=== PATIENT | female | born 1995 | race Caucasian/White ===

== ENCOUNTER 2019-05-08 08:10 | Inpatient (IN) | payer MEDICAID, BC, OTHER ==
[2019-05-08] MEDS: SOD CHLORIDE 0.9% 500 ML IV ×2 (08:59→14:19)
[2019-05-08] MEDS: LIDOCAINE/MYLANTA 40 ML BTL PO (08:59)
[2019-05-08] MEDS: ONDANSETRON 4 MG INJ IV ×2 (08:59→18:31)
[2019-05-08 09:05] LABS: ADD MAN DIFF? NO
[2019-05-08 09:07] LABS: BASOPHILS % 0.2 % (0.0-2.0); HEMATOCRIT 40.1 % (37.0-47.0); HEMOGLOBIN 13.8 g/dl (12.0-16.0); LYMPHOCYTES # 1.1 10^3/ul (0.8-2.9); LYMPHOCYTES % 8.6 % (15.0-51.0); MEAN CORPUSCULAR HEMOGLOBIN 30.3 pg (29.0-33.0); MEAN CORPUSCULAR HGB CONC 34.4 g/dl (32.0-37.0); MEAN CORPUSCULAR VOLUME 87.9 fl (82.0-101.0); MEAN PLATELET VOLUME 9.6 fl (7.4-10.4); MONOCYTE # 0.3 10^3/ul (0.3-0.9); MONOCYTES % 2.5 % (0.0-11.0); NEUTROPHILS % 88.4 % (39.0-77.0); PLATELET COUNT 386 10^3/UL (140-415); RED BLOOD COUNT 4.56 10^6/ul (4.20-5.40); RED CELL DISTRIBUTION WIDTH 12.7 % (11.5-14.5)
[2019-05-08 09:07] LABS: WHITE BLOOD COUNT 12.5 10^3/ul (4.8-10.8)
[2019-05-08 09:15] LABS: ADD UMIC YES; UR ASCORBIC ACID 20 mg/dL (NEGATIVE); UR BILIRUBIN (Dip) NEGATIVE (NEGATIVE); UR BLOOD (Dip) NEGATIVE (NEGATIVE); UR CLARITY CLOUDY (CLEAR); UR COLOR YELLOW (YELLOW); UR GLUCOSE (Dip) NEGATIVE (NEGATIVE); UR KETONES (Dip) 2+ mg/dL (NEGATIVE); UR LEUKOCYTE ESTERASE (Dip) NEGATIVE Leu/ul (NEGATIVE); UR MUCUS FEW /HPF (NONE SEEN); UR NITRITE (Dip) NEGATIVE (NEGATIVE); UR RBC 34 /HPF (0-5); UR SPECIFIC GRAVITY (Dip) 1.023 (1.003-1.030); UR SQUAMOUS EPITHELIAL CELL FEW /HPF (FEW); UR TOTAL PROTEIN (Dip) 1+ mg/dl (NEGATIVE); UR UROBILINOGEN (Dip) NEGATIVE (NEGATIVE); UR WBC 5 /HPF (0-5)
[2019-05-08 09:23] LABS: ANION GAP 11 (5-13); BLOOD UREA NITROGEN 6 mg/dl (7-20); CALCIUM 9.5 mg/dl (8.4-10.2); CARBON DIOXIDE 27 mmol/L (21-31); CHLORIDE 103 mmol/L (97-110); Estimated GFR > 60 mL/min (>60); GLUCOSE 125 mg/dl (70-220); POTASSIUM 3.8 mmol/L (3.5-5.1); SODIUM 141 mmol/L (135-144)
[2019-05-08] MEDS: morphine 4 MG/ML VIAL IV ×2 (11:10→18:32)
[2019-05-08] MEDS: SOD CHLORIDE 0.9% 100 ML (11:26)
[2019-05-08] MEDS: IOHEXOL 300MG/ML 150 ML BTL (11:26)
[2019-05-08] MEDS: morphine 2 MG INJ IV (12:44)
[2019-05-08] MEDS: LORAZEPAM 2 MG INJ IV (14:18)
[2019-05-08] MEDS: LACTATED RINGER'S 1,000 ML IV (18:32)
[2019-05-08] MEDS ORDERED: DESFLURANE 15 MIN (20:00)
[2019-05-08] MEDS: CEFAZOLIN 2 GM/50 ML (PMX) 50 ML IVPB (20:00)
[2019-05-08] MEDS ORDERED: MIDAZOLAM 1 MG/ML 2 ML INJ (20:09)
[2019-05-08] MEDS ORDERED: morphine SULFATE/PF (10 MG/10 ML) INJ (20:14)
[2019-05-08] MEDS ORDERED: METOCLOPRAMIDE 10 MG INJ (20:24)
[2019-05-08] MEDS ORDERED: ROPIVACAINE 0.5 % 30 ML VIAL (20:29)
[2019-05-08] MEDS ORDERED: DIPHENHYDRAMINE 50 MG INJ IV (20:30)
[2019-05-08] MEDS ORDERED: FENTAnyl 50 MCG/ML VIAL IV ×3 (20:30)
[2019-05-08] MEDS ORDERED: HYDROmorphONE 1 MG/5 ML IV SYRINGE IV ×3 (20:30)
[2019-05-08] MEDS ORDERED: KETOROLAC 30 MG INJ IV (20:30)
[2019-05-08] MEDS ORDERED: MEPERIDINE 25 MG INJ IV (20:30)
[2019-05-08] MEDS ORDERED: ONDANSETRON 4 MG INJ IV (20:30)
[2019-05-08] MEDS ORDERED: PROPOFOL 20 ML (20:44)
[2019-05-08] MEDS ORDERED: ROCURONIUM 50 MG INJ ×2 (20:44→23:44)
[2019-05-08] MEDS ORDERED: CEFAZOLIN 1 GM INJ (20:44)
[2019-05-08] MEDS ORDERED: ONDANSETRON 4 MG INJ (20:45)
[2019-05-08] MEDS ORDERED: PHENYLephrine (100 MCG/ML) 10ML SYG (21:04)
[2019-05-08] MEDS ORDERED: BUPIVACAINE 0.25% (MPF) 30 ML INJ (21:04)
[2019-05-08] MEDS: BUPIVACAINE 0.25% (MPF) 30 ML INJ INJ (21:08)
[2019-05-08] MEDS ORDERED: EPHEDrine 25 MG/5 ML SYG ×2 (21:10→23:24)
[2019-05-08] MEDS ORDERED: KETOROLAC 30 MG INJ (23:28)
[2019-05-09] MEDS ORDERED: DIPHENHYDRAMINE 50 MG INJ IV (01:00)
[2019-05-09] MEDS: IBUPROFEN 600 MG TAB PO ×4 (01:00→19:22)
[2019-05-09] MEDS: LACTATED RINGER'S 1,000 ML IV ×4 (02:30→20:45)
[2019-05-09] MEDS: HYDROCODONE/APAP (5/325) TAB PO ×3 (05:43→22:34)
[2019-05-09] MEDS: FAMOTIDINE 20 MG INJ IV ×2 (08:20→20:45)
[2019-05-10] MEDS: IBUPROFEN 600 MG TAB PO ×3 (00:45→13:52)
[2019-05-10] MEDS: LACTATED RINGER'S 1,000 ML IV ×2 (04:30→05:32)
[2019-05-10 05:11] LABS: ADD MAN DIFF? NO
[2019-05-10 05:14] LABS: BASOPHILS % 0.4 % (0.0-2.0); EOSINOPHILS # 0.1 10^3/ul (0.0-0.5); EOSINOPHILS % 0.9 % (0.0-7.0); HEMATOCRIT 34.7 % (37.0-47.0); HEMOGLOBIN 11.1 g/dl (12.0-16.0); LYMPHOCYTES # 2.5 10^3/ul (0.8-2.9); LYMPHOCYTES % 30.6 % (15.0-51.0); MEAN CORPUSCULAR HEMOGLOBIN 29.7 pg (29.0-33.0); MEAN CORPUSCULAR VOLUME 92.8 fl (82.0-101.0); MEAN PLATELET VOLUME 9.9 fl (7.4-10.4); MONOCYTE # 0.6 10^3/ul (0.3-0.9); MONOCYTES % 7.7 % (0.0-11.0); NEUTROPHIL # 4.9 10^3/ul (1.6-7.5); NEUTROPHILS % 60.2 % (39.0-77.0); PLATELET COUNT 300 10^3/UL (140-415); RED BLOOD COUNT 3.74 10^6/ul (4.20-5.40); RED CELL DISTRIBUTION WIDTH 13.2 % (11.5-14.5)
[2019-05-10 05:14] LABS: WHITE BLOOD COUNT 8.2 10^3/ul (4.8-10.8)
[2019-05-10] MEDS: HYDROCODONE/APAP (5/325) TAB PO ×2 (05:31→16:00)
[2019-05-10] MEDS: FAMOTIDINE 20 MG INJ IV (08:23)
[2019-05-10] MEDS: ONDANSETRON 4 MG INJ IV (10:33)
[2019-05-10] MEDS ORDERED: FAMOTIDINE 20 MG TAB PO (21:00)
== END 2019-05-10 17:10 | disposition home or self-care (01) | DRG 743 ==
LOC: MS1 05-09 01:38 → FTE 08:10 → MS1 19:56 → REC 18:12
PROC: 0UB14ZZ Excision of Left Ovary, Percutaneous Endoscopic Approach (ICD-10-PCS; principal; 2019-05-08 20:00)
PROC: 0UN14ZZ Release Left Ovary, Percutaneous Endoscopic Approach (ICD-10-PCS; 2019-05-08 20:00)
DX: N83.202 Unspecified ovarian cyst, left side (principal); N83.512 Torsion of left ovary and ovarian pedicle
CPT/HCPCS: 72197; 74177; 76705; 76830; 76856; 80048; 81001; 81025; 84702; 85025; 87086; 88305; 96361; 96374; 96375; 96376; 99285-25